=== PATIENT | male | born 1955 | race Caucasian/White ===

== ENCOUNTER 2016-11-16 10:15 | Emergency (ER) | payer BC, MEDICARE | END 2016-11-16 13:30 | disposition home or self-care (01) | LOC: ER1 10:15 | DX: M25.561 Pain in right knee (principal); M25.559 Pain in unspecified hip; I25.10 Atherosclerotic heart disease of native coronary artery without angina pectoris; Z88.8 Allergy status to other drugs, medicaments and biological substances; Z95.1 Presence of aortocoronary bypass graft; W18.30XA Fall on same level, unspecified, initial encounter | CPT/HCPCS: 29505; 73502; 73562; 99283 ==

== ENCOUNTER → 2020-08-12 | Outpatient (CLI) | payer OTHER ==
[~2020-08-12] MED LIST: CLOPIDOGREL75 MG PO; CRESTOR40 MG PO; CYCLOBENZAPRINE10 MG PO; CYMBALTA30 MG PO; DICLOFENAC SOD100 GM TP; FLOMAX0.4 MG PO; NORCO 5-325 TA1 EACH PO; TOPROL XL25 MG PO; VITAMIN D31250 MCG PO
== END ==
LOC: KOH-I 09:38
DX: I25.10 Atherosclerotic heart disease of native coronary artery without angina pectoris (principal); M25.551 Pain in right hip; M25.552 Pain in left hip; M16.0 Bilateral primary osteoarthritis of hip; M47.26 Other spondylosis with radiculopathy, lumbar region; J98.11 Atelectasis
CPT/HCPCS: 71046; 72110; 73522

== ENCOUNTER → 2020-09-11 | Outpatient (CLI) | payer OTHER | LOC: KOH-I 13:00 | DX: M54.16 Radiculopathy, lumbar region (principal); M51.36 Other intervertebral disc degeneration, lumbar region; M51.37 Other intervertebral disc degeneration, lumbosacral region | CPT/HCPCS: 72148 ==

== ENCOUNTER → 2020-11-25 | Outpatient (CLI) | payer OTHER ==
[2020-11-25 15:57] LABS: HEMOGLOBIN 14.3 gm/dl (14.0-17.5); RED BLOOD COUNT 4.51 M/UL (4.20-5.50); WHITE BLOOD COUNT 2.4 K/UL (4.5-11.0)
[2020-11-25 16:24] LABS: BUN/CREATININE RATIO 13 (0-10)
== END ==
LOC: LAB 15:28
PROVIDERS: Nurse Practitioner Family
DX: R50.9 Fever, unspecified (principal); J98.11 Atelectasis
CPT/HCPCS: 36415; 71046; 80053; 85025

== ENCOUNTER → 2021-08-13 | Outpatient (CLI) | payer OTHER | LOC: CT 09:41 | DX: R10.9 Unspecified abdominal pain (principal); R63.4 Abnormal weight loss | CPT/HCPCS: 36415; 82565; 84520; Q9967 ==